=== PATIENT | male | born 1955 | race Caucasian/White ===

== ENCOUNTER 2018-04-01 07:56 | Day surgery (SDC) | payer OTHER ==
--- NOTE | 2018-04-01 09:41 | CP.SDSHP ---
Same Day Surgery H & P - History Proposed Procedure: COLONSCOPY Pre-Op Diagnosis: SEE NOTES - Previous Medical/Surgical History Misc: Other Pain: 2.Mild Pain - Allergies Allergies: Allergies No Known Allergies Allergy (Verified 04/01/18 08:18) - Physical Exam General Appearance: N Vital Signs: Vital Signs 04/01/18 08:11 Temperature 97.3 F L Pulse Rate 80 Respiratory 20 Rate Blood Pressure 124/72 O2 Sat by Pulse 97 Oximetry Mental Status: Alert & Oriented x3 Neuro: WNL Heart: WNL Lungs: WNL GI: WNL - {Optional Preform as Required} Breast: WNL Abdomen: WNL Rectal: WNL Integument: WNL : Other Ortho: WNL ENT: WNL - Impression Pt. Evaluated Today:Candidate for Anesthesia & Procedure: Yes - Date & Time Time: 09:41 Short Stay Discharge - Short Stay Discharge Admitting Diagnosis/Reason for Visit: ENCOUNTER FOR SCREENING FOR MALIGNANT NEOPLASM OF Disposition: HOME/ ROUTINE
[2018-04-01] MEDS ORDERED: Lactated Ringer's 1,000 ML IV ONE (09:44)
[2018-04-01] MEDS ORDERED: Propofol 10 mg/ml Inj (20 ML) ONE (09:48)
[2018-04-01 10:15] VITALS: TEMP 98.2
[2018-04-01] MEDS ORDERED: Belladonna-Phenobarbital PO ONE (10:30)
[2018-04-01 13:19] VITALS: BP 108/60; PULSE 73; RESP 14; O2SAT 97
== END 2018-04-01 13:17 | disposition home or self-care (01) ==
LOC: C.ENDO 07:56
PROVIDERS: ATTEND Specialist
DX: Z12.11 Encounter for screening for malignant neoplasm of colon (principal); D12.0 Benign neoplasm of cecum
CPT/HCPCS: 45380; 88305; J2001; J2704; J7120

== ENCOUNTER 2018-07-18 12:50 | Outpatient (CLI) | payer OTHER | END 2018-07-18 12:51 | disposition home or self-care (01) | LOC: C.CTH 12:50 | DX: H90.12 Conductive hearing loss, unilateral, left ear, with unrestricted hearing on the contralateral side (principal) ==